=== PATIENT | male | born 1990 | race Caucasian/White ===

== ENCOUNTER 2020-08-26 15:33 | Emergency (ER) | payer OTHER | END 2020-08-26 16:10 | disposition home or self-care (01) | LOC: JVIRT 15:33 | DX: Z20.828 Contact with and (suspected) exposure to other viral communicable diseases (principal) | CPT/HCPCS: C9803; G2012-GT; U0003 ==

== ENCOUNTER 2024-02-13 14:41 | Emergency (ER) | payer OTHER ==
[2024-02-13 14:50] VITALS: BP 127/86; PULSE 85; RESP 20; TEMP 98.4; BMI 37.8
== END 2024-02-13 17:24 | disposition home or self-care (01) ==
LOC: JERFT 14:41
DX: S93.402A Sprain of unspecified ligament of left ankle, initial encounter (principal); W10.8XXA Fall (on) (from) other stairs and steps, initial encounter; Y93.01 Activity, walking, marching and hiking; Y92.830 Public park as the place of occurrence of the external cause
CPT/HCPCS: 73610-TC-LT-FY; 99283-25